=== PATIENT | female | born 1980 | race Caucasian/White ===

== ENCOUNTER 2018-11-27 14:03 | Emergency (ER) | payer SELFPAY ==
[2018-11-27] MEDS ORDERED: KETOROLAC 30 MG/ML INJ ONE (14:30)
--- NOTE | 2018-11-27 15:09 | ER ---
Nurse's Notes [facility] Name: Madai Potts Age: 38 yrs Sex: Female : 1980 Arrival Date: 11/27/2018 Time: 14:08 Bed 10 Private MD: Diagnosis: Other sprain of right foot Presentation: 11/27 14:09 Presenting complaint: Patient states: I hurt my right ankle on week ago and it has been la1 hurting since then. Transition of care: patient was not received from another setting of care. Onset of symptoms was November 27, 2018. Risk Assessment: Do you want to hurt yourself or someone else? Patient reports no desire to harm self or others. Initial Sepsis Screen: Does the patient meet any 2 criteria? No. Patient's initial sepsis screen is negative. Does the patient have a suspected source of infection? No. Patient's initial sepsis screen is negative. Care prior to arrival: None. 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 - Social history:: Smoking status: Patient/guardian denies using tobacco. - Ebola Screening: : No symptoms or risks identified at this time. Screenin:11 Abuse screen: Denies threats or abuse. Nutritional screening: No deficits noted. la1 Tuberculosis screening: No symptoms or risk factors identified. Fall Risk None identified. Assessment: 14:10 General: Appears in no apparent distress. Behavior is calm, cooperative. Pain: la1 Complains of pain in right lateral malleolus. Neuro: Level of Consciousness is awake, alert, obeys commands, Oriented to person, place, time, situation. Cardiovascular: Capillary refill < 3 seconds Patient's skin is warm and dry. Respiratory: Airway is patent Respiratory effort is even, unlabored, Respiratory pattern is regular, symmetrical. GI: No signs and/or symptoms were reported involving the gastrointestinal system. : No signs and/or symptoms were reported regarding the genitourinary system. Musculoskeletal: Circulation, motion, and sensation intact. Capillary refill < 3 seconds, is brisk, in bilateral toes. 14:36 Reassessment: Patient is alert, oriented x 3, equal unlabored respirations, skin aa5 warm/dry/pink. No swelling noted to right ankle, pt c/o pain to right ankle . 14:37 Reassessment: X-ray at bedside, pt notified of wait time for results . aa5 15:20 Reassessment: Walking boot applied to right foot . aa5 15:20 Reassessment: Patient is alert, oriented x 3, equal unlabored respirations, skin aa5 warm/dry/pink. Vital Signs: 14:11 BP 144 / 89; Pulse 91; Resp 16; Temp 98.4; Pulse Ox 100% on R/A; Weight 79.38 kg; la1 Height 5 ft. 3 in. (160.02 cm); 14:11 Body Mass Index 31.00 (79.38 kg, 160.02 cm) la1 ED Course: 14:08 Patient arrived in ED. mr 14:10 Triage completed. la1 14:10 Arm band placed on right wrist. la1 14:11 Patient has correct armband on for positive identification. la1 14:12 Soo Bueno FNP-C is PHCP. snw 14:12 Robert Willingham MD is Attending Physician. snw 14:36 Lianet Booth, MILTON is Primary Nurse. aa5 15:06 Ankle Right 3 View XRAY In Process Unspecified. EDMS 15:15 No provider procedures requiring assistance completed. Patient did not have IV access aa5 during this emergency room visit. Administered Medications: 14:36 Drug: TORadol 30 mg Route: IM; Site: right deltoid; aa5 15:15 Follow up: Response: No adverse reaction aa5 Outcome: 15:08 Discharge ordered by . snw 15:20 Discharged to home ambulatory, with family. aa5 15:20 Condition: stable 15:20 Discharge instructions given to patient, Instructed on discharge instructions, follow up and referral plans. medication usage, Demonstrated understanding of instructions, follow-up care, medications, Prescriptions given X 2. 15:26 Patient left the ED. aa5 Signatures: Dispatcher [employer] EDIN Soo Bueno FNP-C PATTERN VAULT CLERK-Csn Jodi Elizabeth mr Lianet Booth, MILTON RN aa5 Onel Segundo RN RN la1 Corrections: (The following items were deleted from the chart) 11/28 07:34 11/27 14:36 Reassessment: Patient is alert, oriented x 3, equal unlabored respirations, aa5 skin warm/dry/pink. aa5
--- NOTE | 2018-11-27 15:10 | EDPHYS ---
Physician Documentation [facility] Name: Madai Potts Age: 38 yrs Sex: Female : 1980 Arrival Date: 11/27/2018 Time: 14:08 Bed 10 Private MD: YASMANY Physician Robert Willingham HPI: 11/27 14:25 This 38 yrs old Female presents to ER via Ambulatory with complaints of Ankle snw Injury. 14:25 The patient presents with an injury, pain, swelling. The complaints affect the right snw ankle. Onset: The symptoms/episode began/occurred gradually, 1 week(s) ago. Context: The problem was sustained outdoors, mud run, resulted from a mis-step by the patient, The mechanism of injury is unknown. The patient can partially bear weight on the affected extremity. the patient is able to ambulate. Modifying factors: The symptoms are alleviated by nothing, the symptoms are aggravated by weight bearing, movement. Severity of symptoms: At their worst the symptoms were moderate. It is unknown whether or not the patient has had similar symptoms in the past. The patient has not recently seen a physician. 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 - Social history:: Smoking status: Patient/guardian denies using tobacco. - Ebola Screening: : No symptoms or risks identified at this time. ROS: 14:25 Constitutional: Negative for fever, chills, and weight loss, Eyes: Negative for injury, snw pain, redness, and discharge, ENT: Negative for injury, pain, and discharge, Neck: Negative for injury, pain, and swelling, Cardiovascular: Negative for chest pain, palpitations, and edema, Respiratory: Negative for shortness of breath, cough, wheezing, and pleuritic chest pain, Abdomen/GI: Negative for abdominal pain, nausea, vomiting, diarrhea, and constipation, Back: Negative for injury and pain, : Negative for injury, bleeding, discharge, and swelling, Skin: Negative for injury, rash, and discoloration, Neuro: Negative for headache, weakness, numbness, tingling, and seizure, Psych: Negative for depression, anxiety, suicide ideation, homicidal ideation, and hallucinations. 14:25 MS/extremity: Positive for injury or acute deformity, pain, swelling, of the lateral side of right heel and right Achilles. Exam: 14:25 Constitutional: This is a well developed, well nourished patient who is awake, alert, snw and in no acute distress. Head/Face: Normocephalic, atraumatic. Eyes: Pupils equal round and reactive to light, extra-ocular motions intact. Lids and lashes normal. Conjunctiva and sclera are non-icteric and not injected. Cornea within normal limits. Periorbital areas with no swelling, redness, or edema. ENT: Nares patent. No nasal discharge, no septal abnormalities noted. Tympanic membranes are normal and external auditory canals are clear. Oropharynx with no redness, swelling, or masses, exudates, or evidence of obstruction, uvula midline. Mucous membranes moist. Neck: Trachea midline, no thyromegaly or masses palpated, and no cervical lymphadenopathy. Supple, full range of motion without nuchal rigidity, or vertebral point tenderness. No Meningismus. Chest/axilla: Normal chest wall appearance and motion. Nontender with no deformity. No lesions are appreciated. Cardiovascular: Regular rate and rhythm with a normal S1 and S2. No gallops, murmurs, or rubs. Normal PMI, no JVD. No pulse deficits. Respiratory: Lungs have equal breath sounds bilaterally, clear to auscultation and percussion. No rales, rhonchi or wheezes noted. No increased work of breathing, no retractions or nasal flaring. Abdomen/GI: Soft, non-tender, with normal bowel sounds. No distension or tympany. No guarding or rebound. No evidence of tenderness throughout. Back: No spinal tenderness. No costovertebral tenderness. Full range of motion. Skin: Warm, dry with normal turgor. Normal color with no rashes, no lesions, and no evidence of cellulitis. Neuro: Awake and alert, GCS 15, oriented to person, place, time, and situation. Cranial nerves II-XII grossly intact. Motor strength 5/5 in all extremities. Sensory grossly intact. Cerebellar exam normal. Normal gait. Psych: Awake, alert, with orientation to person, place and time. Behavior, mood, and affect are within normal limits. 14:25 Musculoskeletal/extremity: Extremities: grossly normal except: decreased ROM, swelling, tenderness, ROM: no acute changes, Circulation is intact in all extremities. Sensation intact. 14:25 Skin: Appearance: normal except for affected area, right foot with abrasions from her dog. Vital Signs: 14:11 BP 144 / 89; Pulse 91; Resp 16; Temp 98.4; Pulse Ox 100% on R/A; Weight 79.38 kg; la1 Height 5 ft. 3 in. (160.02 cm); 14:11 Body Mass Index 31.00 (79.38 kg, 160.02 cm) la1 MDM: 14:14 Patient medically screened. snw 15:10 Data reviewed: vital signs, nurses notes. Data interpreted: Pulse oximetry: on room air snw is 100 %. Interpretation: normal. Counseling: I had a detailed discussion with the patient and/or guardian regarding: the historical points, exam findings, and any diagnostic results supporting the discharge/admit diagnosis, lab results, the need for outpatient follow up, to return to the emergency department if symptoms worsen or persist or if there are any questions or concerns that arise at home. Special discussion: I discussed in detail with the patient the higher chance of wound infection based on his presenting history. Based on the history and exam findings, there is no indication for further emergent testing or inpatient evaluation. I discussed with the patient/guardian the need to see the electrician master for further evaluation of the symptoms. 15:11 Special discussion: Based on the history and exam findings, there is no indication for snw further emergent testing or inpatient evaluation. I discussed with the patient/guardian the need to see the orthopedic surgeon for further evaluation of the symptoms. I discussed with the patient/guardian the need to see the primary care provider for further evaluation of the symptoms. 11/27 14:25 Order name: Ankle Right 3 View XRAY; Complete Time: 16:07 snw 11/27 14:25 Order name: Walking boot; Complete Time: 15:25 snw Administered Medications: 14:36 Drug: TORadol 30 mg Route: IM; Site: right deltoid; aa5 15:15 Follow up: Response: No adverse reaction aa5 Disposition: 11/27/18 15:08 Discharged to Home. Impression: Other sprain of right foot. - Condition is Stable. - Discharge Instructions: Ankle Sprain, Foot Sprain, RICE for Routine Care of Injuries, Walking Boot. - Prescriptions for Tylenol- Codeine #3 300-30 mg Oral Tablet - take 2 tablets by ORAL route every 6 hours As needed; 14 tablet. orphenadrine citrate 100 mg Oral Tablet Sustained Release - take 1 tablet by ORAL route 2 times per day As needed; 20 tablet. - Medication Reconciliation Form, Thank You Letter, Antibiotic Education, Prescription Opioid Use form. - Follow up: Private Physician; When: 2 - 3 days; Reason: Recheck today's complaints, Continuance of care, Re-evaluation by your physician. Follow up: Emergency Department; When: As needed; Reason: Worsening of condition. Addendum: 11/29/2018 09:12 Co-signature as Attending Physician, Robert Willingham MD I agree with the assessment and c moore plan of care. Signatures: Dispatcher [employer] EDRobert Keller MD MD cha Therrien, Shelly, GRANITE POLISHER MACHINE-C GRANITE POLISHER MACHINE-Csnw iLanet Booth RN RN aa5 Onel Segundo RN RN la1 Corrections: (The following items were deleted from the chart) 11/27 15:26 15:08 11/27/2018 15:08 Discharged to Home. Impression: Other sprain of right foot. aa5 Condition is Stable. Forms are Medication Reconciliation Form, Thank You Letter, Antibiotic Education, Prescription Opioid Use. Follow up: Private Physician; When: 2 - 3 days; Reason: Recheck today's complaints, Continuance of care, Re-evaluation by your physician. Follow up: Emergency Department; When: As needed; Reason: Worsening of condition. snw
--- NOTE | 2018-11-27 15:20 | RAD REPORT ---
EXAM DESCRIPTION: RAD - Ankle Right 3 View - 11/27/2018 3:03 pm CLINICAL HISTORY: Right ankle pain FINDINGS: No fracture or dislocation is seen. Moderate spur extends off the posterior aspect of the calcaneus
== END 2018-11-27 15:26 | disposition home or self-care (01) ==
LOC: ER 14:03
DX: S93.601A Unspecified sprain of right foot, initial encounter (principal); Y93.02 Activity, running; Y92.9 Unspecified place or not applicable
CPT/HCPCS: 96372; 99283

== ENCOUNTER 2020-10-08 21:34 | Emergency (ER) | payer SELFPAY ==
--- OUTSIDE RECORDS SUMMARY | 2020-10-08 21:37 | XMS REPORT | Continuity of Care Document ---
:[address] [facility] t Address [address] [place] [address] Care Team Providers Name Role Phone Dillon Attending Clinician [phone] Jose L Cohn Attending Clinician Problems Condition Condition Condition Status Onset Resolution Last Treating Co mments Source Name Details Category Date Date Treatment Clinician Date ABD PAIN Diagnosis Active 2013-07-31 M emoria -04 18:34:00 l ABD PAIN 12:00: Barrie n 00 Active 07/31/2013 [facility] History of Past Illness Condition Condition Condition Status Onset Resolution Last Treating Co mments Source Name Details Category Date Date Treatment Clinician Date Discharge Problem 2013-08-02 2013-08-02 Memoria Diagnosis: - 20:48:06 20:48:06 l Acute 05:00: Saqib epigastric Discharge 00 pain Diagnosis: Acute epigastric pain 07/31/2013 08/02/2013 [facility] Allergies, Adverse Reactions, Alerts This patient has no known allergies or adverse reactions. Medications Ordered Filled Start Stop Current Ordering Indication Dosage Frequency Signature Comments Components Source Medication Medication Date Date Medication? Clinician (SIG) Name Name Ondansetron Yes Special Mem oria 4 MG 5-05 Instructio l Disintegrat 00:07: ns: Barrie n ing Tablet 00 Dissolve [Zofran] tab under tongue Ranitidine Yes 150 mg = 1 M emoria 150 MG Oral 5-05 tab, PO, l Tablet 00:07: BID, # 60 Barrie n [Zantac] 00 tab, 0 Refill(s) Acetaminoph Yes 1 tab, PO, Memoria en 325 MG / 5-05 Q4H, for l Hydrocodone 00:07: pain, # 24 Saqib Bitartrate 00 tab, 0 5 MG Oral Refill(s) Tablet [Ririe 5/325] pantoprazol Yes 40 mg = 1 M emoria e 40 MG 5-05 tab, PO, l Enteric 00:07: Daily, # Barrie n Coated 00 90 tab, 0 Tablet Refill(s) [Protonix] GI cocktail No 30 mL, Osito vivek 5-04 Route: PO, l 23:27: Dosing 00 Weight 65.909, kg, ONCE, STAT, Start date: 07/31/13 18:27:00, Stop date: 07/31/13 18:27:00 Ondansetron No Notes: Osito vivek 5-04 (Same as: l 22:13: Zofran) [place] 00 Morphine No Notes: Memoria 5-04 (Same l 22:13: as:MORPhin Saqib e Sulfate) Saline No Notes: Memoria Flush 0.9% 04 (Same as: l 22:13: BD [place] Posiflush) Vital Signs Vital Name Observation Time Observation Value Comments Source Temperature Oral (F) 2013-08-01 00:10:00 98.3 F [facility] 2013-08-01 00:10:00 Memori al [place] Diastolic (mm Hg) 2013-08-01 00:10:00 Mem adisal Saq[facility] Systolic (mm Hg) 2013-08-01 00:10:[facility] 2013-07-31 21:55:00 [facility] BMI Calculated 2013-07-31 21:55:00 Mem[facility] al [facility] Height 2013-07-31 21:55:00 165.1 cm [facility] Diastolic (mm Hg) 2013-07-31 21:55:00 Mem orial [place] Heart Rate 2013-07-31 21:55:00 [facility] Temperature Oral (F) 2013-07-31 21:55:00 98.3 F [facility] Systolic ([facility] Hg) 2013-07-31 21:55:00 Osito rial [place] Respitory Rate 2013-07-31 21:55:00 Kristi al Saqib Procedures This patient has no known procedures. Encounters Start End Encounter Admission Attending Care Care Encounter Source Date/Time Date/Time Type Type Clinicians Facility Department ID 2020-09-26 2020-09-26 Outpatient JONE Dillon [facility] [id number] a-d 00:00:00 00:00:00 Soo [id number] 2013-07-31 2013-07-31 Outpatient Skip Cohn [facility] [id number] 16:53:00 19:20:00 Jose L 00 Results Test Description Test Time Test Comments Results Result Comments Source URINE AND STOOL 2013-07-31 None Seen [facility] 23:25:00 (07/31/13 6:25 [place] PM) URINE AND STOOL 2013-07-31 Clear (07/31/13 Memori al 23:25:00 6:25 PM) Saqib URINE AND STOOL 2013-07-31 [facility] 23:25:00 *NA*(07/31/13 Saqib 6:25 PM) URINE AND STOOL 2013-07-31 23:25:00 Test Item Value Reference Range Interpretation Comme nts UA pH (test code = UA pH) 6.5 1 5.0-8.0 [facility] [id number] 23:25:00Negative (07/31/13 6:25 PM) [facility] [id number] 23:25:00 Test Item Value Reference Range Interpretation Comments UA Spec Grav (test code = UA Spec 1.015 1 Grav) [facility] [id number] 23:25:00Negative (07/31/13 6:25 PM) [facility] [id number] 23:25:00Trace *ABN*(07/31/13 6:25 PM) [facility] [id number] 23:25:00Small *ABN*(07/31/13 6:25 PM) [facility] [id number] 23:25:00Negative *NA*(07/31/13 6:25 PM) [facility] [id number] 23:25:00Negative (07/31/13 6:25 PM) [facility] [id number] 23:25:000.2[facility] [id number] 23:25:00Negative (07/31/13 6:25 PM)[facility] CHEM 2013-07-31 23:25:00Negative (07/31/13 6:25 PM)[facility]ann[facility]ARDIAC ENZYMES 2013-07-31 22:20:33<0.02[facility] [id number] 22:20:68879 [facility] [id number] 22:20:330.7[facility]annCARDIAC [id number] 22:20:330.4[facility] HermannCHEM [id number] 22:20:28689 [facility]annCHEM [id number] 22:20:3380[facility]annCHEM PANEL 2013-07-31 22:20:333.2[facility] HermannCHEM [id number] 22:20:331.3[facility]annCHEM [id number] 22:20:337.4[facility]annCHEM [id number] 22:20:330.7[facility] HermannCHEM [id number] 22:20:3312.9[facility] HermannCHEM [id number] 22:20:3314[facility] HermannCHEM [id number] 22:20:26821 [facility]ann[facility] [id number] 22:20:3312[facility] HermannCHEM PANEL 2013-07-31 22:20:90644Uqbfcmmv HermannCHEM [id number] 22:20:333.9[facility] HermannCHEM [id number] 22:20:3326[facility] HermannCHEM [id number] 22:20:339.5[facility] HermannCHEM [id number] 22:20:3352[facility] HermannCHEM [id number] 22:20:334.2[facility] HermannCHEM [id number] 22:20:3385 [facility]annCHE[facility] [id number] 22:20:3312[facility] HermannCHEM PANEL 2013-07-31 22:20:331.0[facility] HermannCHEM [id number] 22:20:3321[facility] RyngkqiKMRBGHRDYY3312-72-59 22:20:3385.0[facility] SmizaxpXWGDFRICRG8408-80-40 22:20:338.4[facility] FphrxoxOBWDYLHSNQ5273-23-19 22:20:3313.2[facility] [id number] 22:20:3335.4[facility] DfmtdymNYWLBYEYOC1182-12-40 22:20:33 Test Item Value Reference Range Interpretation Comments MCH (test code = MCH) 30.1 pg 27.0-31.0 [facility] [id number] 22:20:16593Cpfqsckr HermannHEMATOLOGY 2013-07-31 22:20:337.4[facility] XthmnqsUGPSXMMDVS3211-43-81 22:20:3314.4[facility] UuratwgATGJXFBWSI0026-50-57 22:20:334.77[facility] RcvykxcEAVRQXLNVS2469-90-87 22:20:3340.5[facility] FclpwbbCSJQXGVZDD8407-48-46 22:20:33 Test Item Value Reference Range Interpretation Comments PTT (test code = PTT) 30.5 s 22.9-35.8 [facility] JpbcasgZDRLLAWYGE7575-49-10 22:20:33 Test Item Value Reference Range Interpretation Comments PT (test code = PT) 13.0 s 12.0-14.7 [facility] RovwpqdHEIVOXVSQA5354-20-04 22:20:330.99[facility] HermannHEMATOLOGY 2013-07-31 22:20:330.6[facility] NbmdjzhUXDQLVQHCX6555-99-47 22:20:330.1[facility] QbpelzsAEZAEKTNIB5335-61-93 22:20:338.4[facility] UtiyaipNBAOLKGLJO0756-21-88 22:20:3334.4[facility] YxvsadbONLGOATLCS0767-11-26 22:20:330.8[facility] [place] EZCLGWOJGO2646-20-69 22:20:3356.0[facility] GmnkqxbJNWIXACMLU8440-74-25 22:20:33 2.6[facility] LqmmlmsSAWEDAGDOS7317-10-75 22:20:330.4[facility] HermannHEMATOLOGY 2013-07-31 22:20:334.2[facility] [place]
[2020-10-08 23:51] LABS: Absolute Lymphocytes (CBC) 2.9 K/uL (0.7-4.9); Basophils % 0.7 % (0-1.3); Lymphocytes % 37.1 % (15.3-44.8); MPV 8.3 fL (7.6-11.3); Protime INR 0.9; RBC Red Blood Cell Count 4.43 M/uL (3.86-4.86)
[2020-10-09] MEDS ORDERED: NA CHLORIDE 0.9% 1,000 ML ONE (00:02)
[2020-10-09 00:11] LABS: ALT/SGPT 17 U/L (12-78); AST/SGOT 14 U/L (15-37); Albumin 3.6 g/dL (3.4-5.0); Alkaline Phosphatase 48 U/L (45-117); Anisocytosis 1+; BUN Blood Urea Nitrogen 22 mg/dL (7-18); Bicarbonate 28 mmol/L (21-32); Bilirubin Direct < 0.1 mg/dL (0-0.2); Bilirubin Total 0.2 mg/dL (0.2-1.0); Blood Morphology Comment NOTED (NOT SEEN); Glucose Level 107 mg/dL (74-106); Hypochromasia 1+; NT PRO-BNP 16 pg/mL (<125); Platelet Estimate ADEQ; Potassium 3.5 mmol/L (3.5-5.1); Protein, Total 6.8 g/dL (6.4-8.2); Sodium Level 141 mmol/L (136-145); Troponin (Emerg Dept Use Only) < 0.02 ng/mL (0.0-0.045); White Blood Cell Scan OK (OK)
--- NOTE | 2020-10-09 00:22 | EDPHYS ---
Physician Documentation [facility] Name: Madai Potts Age: 40 yrs Sex: Female : 1980 Arrival Date: 10/08/2020 Time: 21:40 Bed 4 Private MD: ED Physician Robert Willingham HPI: 10/09 00:15 This 40 yrs old Female presents to ER via Ambulatory with complaints of juan Dizziness, Headache, LETHARGIC. 00:15 The patient presents with dizziness, feeling faint, generalized weakness. Onset: The juan symptoms/episode began/occurred 7 day(s) ago. Context: occurred at an unknown location. Modifying factors: The symptoms are alleviated by nothing, the symptoms are aggravated by nothing. Associated signs and symptoms: The patient has no apparent associated signs or symptoms. Severity of symptoms: At their worst the symptoms were mild in the emergency department the symptoms are unchanged. Patient's baseline: Neuro: alert and fully oriented. The patient has experienced similar episodes in the past, multiple times. 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 - Social history:: Smoking status: Patient denies any tobacco usage or history of. - Family history:: not pertinent. ROS: 10/09 00:15 Constitutional: Negative for fever, chills, and weight loss, Eyes: Negative for injury, juan pain, redness, and discharge, ENT: Negative for injury, pain, and discharge, Neck: Negative for injury, pain, and swelling, Cardiovascular: Negative for chest pain, palpitations, and edema, Respiratory: Negative for shortness of breath, cough, wheezing, and pleuritic chest pain, Abdomen/GI: Negative for abdominal pain, nausea, vomiting, diarrhea, and constipation, Back: Negative for injury and pain, : Negative for injury, bleeding, discharge, and swelling, MS/Extremity: Negative for injury and deformity, Skin: Negative for injury, rash, and discoloration, Psych: Negative for depression, anxiety, suicide ideation, homicidal ideation, and hallucinations, Allergy/Immunology: Negative for hives, rash, and allergies, Endocrine: Negative for neck swelling, polydipsia, polyuria, polyphagia, and marked weight changes, Hematologic/Lymphatic: Negative for swollen nodes, abnormal bleeding, and unusual bruising. : Positive for vaginal bleeding, 3 days ago. Neuro: Positive for weakness. Exam: 00:15 Constitutional: This is a well developed, well nourished patient who is awake, alert, juan and in no acute distress. Head/Face: Normocephalic, atraumatic. Eyes: Pupils equal round and reactive to light, extra-ocular motions intact. Lids and lashes normal. Conjunctiva and sclera are non-icteric and not injected. Cornea within normal limits. Periorbital areas with no swelling, redness, or edema. ENT: Nares patent. No nasal discharge, no septal abnormalities noted. Tympanic membranes are normal and external auditory canals are clear. Oropharynx with no redness, swelling, or masses, exudates, or evidence of obstruction, uvula midline. Mucous membranes moist. Neck: Trachea midline, no thyromegaly or masses palpated, and no cervical lymphadenopathy. Supple, full range of motion without nuchal rigidity, or vertebral point tenderness. No Meningismus. Chest/axilla: Normal chest wall appearance and motion. Nontender with no deformity. No lesions are appreciated. Cardiovascular: Regular rate and rhythm with a normal S1 and S2. No gallops, murmurs, or rubs. Normal PMI, no JVD. No pulse deficits. Respiratory: Lungs have equal breath sounds bilaterally, clear to auscultation and percussion. No rales, rhonchi or wheezes noted. No increased work of breathing, no retractions or nasal flaring. Abdomen/GI: Soft, non-tender, with normal bowel sounds. No distension or tympany. No guarding or rebound. No evidence of tenderness throughout. Back: No spinal tenderness. No costovertebral tenderness. Full range of motion. Skin: Warm, dry with normal turgor. Normal color with no rashes, no lesions, and no evidence of cellulitis. MS/ Extremity: Pulses equal, no cyanosis. Neurovascular intact. Full, normal range of motion. Neuro: Awake and alert, GCS 15, oriented to person, place, time, and situation. Cranial nerves II-XII grossly intact. Motor strength 5/5 in all extremities. Sensory grossly intact. Cerebellar exam normal. Normal gait. Psych: Awake, alert, with orientation to person, place and time. Behavior, mood, and affect are within normal limits. 00:23 ECG was reviewed by the Attending Physician. [facility] Vital Signs: 10/08 21:57 BP 116 / 71; Pulse 74; Resp 15 S; Temp 97.6(TE); Pulse Ox 100% on R/A; Weight 72.57 kg ca1 (R); Height 5 ft. 3 in. (160.02 cm) (R); Pain 0/10; 23:44 BP 118 / 63; Pulse 72; Resp 18; Pulse Ox 99% ; ea 10/09 00:59 BP 105 / 62 LA Supine (auto/); Pulse 64 MON; Pulse Ox 100% on R/A; ds4 01:02 BP 117 / 74 LA Sitting (auto/); Pulse 72 MON; Pulse Ox 99% on R/A; ds4 01:05 BP 118 / 79 LA Standing (auto/); Pulse 74 MON; Pulse Ox 100% on R/A; ds4 10/08 21:57 Body Mass Index 28.34 (72.57 kg, 160.02 cm) ca1 MDM: 10/08 23:31 Patient medically screened. [facility] 10/09 00:19 Differential diagnosis: cardiac arrhythmia, generalized weakness, hypovolemia, juan near-syncope, . Data reviewed: vital signs, nurses notes, lab test result(s), EKG, radiologic studies. Data interpreted: playground monitor: rate is 72 beats/min, rhythm is regular. Test interpretation: by ED physician or midlevel provider: ECG, plain radiologic studies. Counseling: I had a detailed discussion with the patient and/or guardian regarding: the historical points, exam findings, and any diagnostic results supporting the discharge/admit diagnosis, lab results, radiology results, the need for outpatient follow up, for definitive care, an OB/Gyne specialist. 10/08 23:25 Order name: Basic Metabolic Panel; Complete Time: 00: ea 10/08 23:25 Order name: CBC with Diff; Complete Time: : 10/08 23:25 Order name: LFT's; Complete Time: 10/08 23:25 Order name: Magnesium; Complete Time: 00: 10/08 23:25 Order name: NT PRO-BNP; Complete Time: 00:14 10/08 23:25 Order name: PT-INR; Complete Time: 00:14 10/08 23:25 Order name: Troponin (emerg Dept Use Only); Complete Time: 00:14 10/08 23:25 Order name: XRAY Chest (1 view) 10/08 23:33 Order name: Urine Culture [facility] 10/09 00:00 Order name: CBC Smear Scan; Complete Time: 00:14 [facility] 10/09 00:39 Order name: Urine Dipstick-Ancillary [facility] 10/09 00:41 Order name: Urine --Ancillary (enter results) ds4 10/08 23:25 Order name: EKG; Complete Time: 23:26 10/08 23:25 Order name: Cardiac monitoring; Complete Time: 23:37 10/08 23:25 Order name: EKG - Nurse/Tech; Complete Time: 23:37 10/08 23:25 Order name: IV Saline Lock; Complete Time: 23:37 10/08 23:25 Order name: Labs collected and sent; Complete Time: 23:37 10/08 23:25 Order name: O2 Per Protocol; Complete Time: 23:37 10/08 23:25 Order name: O2 Sat Monitoring; Complete Time: 23:37 10/08 23:33 Order name: Urine Dipstick-Ancillary (obtain specimen); Complete Time: 00:41 [facility] 10/08 23:33 Order name: Urine Test (obtain specimen); Complete Time: 00:41 [facility] 10/09 00:24 Order name: Orthostatic Blood Pressure; Complete Time: 01:07 [facility] EC:23 Rate is 75 beats/min. Rhythm is regular. QRS Kennan is Normal. CT interval is normal. QRS juan interval is normal. QT interval is normal. No Q waves. T waves are Normal. No ST changes noted. Clinical impression: Normal ECG and No evidence of ischemia. Interpreted by me. Reviewed by me. Administered Medications: 10/08 23:43 Drug: NS 0.9% 1000 ml Route: IV; Rate: 1 bolus; Site: right antecubital; ea 10/09 01:20 Follow up: Response: No adverse reaction; IV Status: Completed infusion; IV Intake: ea 1000ml Disposition Summary: 10/09/20 00:21 Discharge Ordered Location: Home juan Problem: new juan Symptoms: have improved juan Condition: Stable juan Diagnosis - Leiomyoma of uterus, unspecified juan - Abnormal uterine and vaginal bleeding, unspecified juan - Weakness juan - Anemia, unspecified juan Followup: juan - With: Private Physician - When: 2 - 3 days - Reason: Recheck today's complaints, Continuance of care, Re-evaluation by your physician Followup: juan - With: Tereso Mart MD - When: 2 - 3 days - Reason: Recheck today's complaints, Re-evaluation by your physician Discharge Instructions: - Discharge Summary Sheet juan - Abnormal Uterine Bleeding juan - Uterine Fibroids juan - Dysfunctional Uterine Bleeding juan - Weakness juan - Weakness, [id number] juan - Abnormal Uterine Bleeding, [id number] juna Forms: - Medication Reconciliation Form juan - Thank You Letter juan - Antibiotic Education juan - Prescription Opioid Use [facility] Prescriptions: - Ferrous Sulfate 325 mg (65 mg Iron) Oral Tablet - take 1 tablet by ORAL route every 8 hours; 90 tablet; Refills: 0, Product [facility] Selection Permitted - Ibuprofen 600 mg Oral Tablet - take 1 tablet by ORAL route every 6 hours As needed take with food; 20 tablet; juan Refills: 0, Product Selection Permitted Signatures: Dispatcher [employer] Robert Lombardo MD MD cha Antunez, Elena, RN RN Suzi Nieves RN RN ria
--- NOTE | 2020-10-09 00:22 | ER ---
Nurse's Notes [facility] Name: Madai Potts Age: 40 yrs Sex: Female : 1980 Arrival Date: 10/08/2020 Time: 21:40 Bed 4 Private MD: Diagnosis: Leiomyoma of uterus, unspecified;Abnormal uterine and vaginal bleeding, unspecified;Weakness;Anemia, unspecified Presentation: 10/08 21:57 Chief complaint: Patient states: Dizziness, fatigue, weak for a while now. My doctor ca1 sent me here for low Iron levels. I have heavy bleeding during my periods. Coronavirus screen: Client denies travel out of the [place] in the last 14 days. At this time, the client does not indicate any symptoms associated with coronavirus-19. Ebola Screen: Patient negative for fever greater than or equal to 101.5 degrees Fahrenheit, and additional compatible Ebola Virus Disease symptoms Patient denies exposure to infectious person. Patient denies travel to an Ebola-affected area in the 21 days before illness onset. No symptoms or risks identified at this time. Initial Sepsis Screen: Does the patient meet any 2 criteria? No. Patient's initial sepsis screen is negative. Does the patient have a suspected source of infection? No. Patient's initial sepsis screen is negative. Risk Assessment: Do you want to hurt yourself or someone else? Patient reports no desire to harm self or others. Onset of symptoms was October 08, 2020. 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 - Social history:: Smoking status: Patient denies any tobacco usage or history of. - Family history:: not pertinent. Screenin:44 Abuse screen: Denies threats or abuse. Nutritional screening: No deficits noted. ea Tuberculosis screening: No symptoms or risk factors identified. Fall Risk None identified. Assessment: 23:44 General: Appears uncomfortable, Behavior is calm, cooperative, appropriate for age. ea Neuro: Level of Consciousness is awake, alert, obeys commands, Oriented to person, place, time. Cardiovascular: Patient's skin is warm and dry. Respiratory: Airway is patent Respiratory effort is even, unlabored, Respiratory pattern is regular, symmetrical. Derm: Skin is pink, warm \T\ dry. 10/09 01:19 Reassessment: Patient and/or family updated on plan of care and expected duration. Pain ea level reassessed. Patient is alert, oriented x 3, equal unlabored respirations, skin warm/dry/pink. Vital Signs: 10/08 21:57 BP 116 / 71; Pulse 74; Resp 15 S; Temp 97.6(TE); Pulse Ox 100% on R/A; Weight 72.57 kg ca1 (R); Height 5 ft. 3 in. (160.02 cm) (R); Pain 0/10; 23:44 BP 118 / 63; Pulse 72; Resp 18; Pulse Ox 99% ; ea 10/09 00:59 BP 105 / 62 LA Supine (auto/); Pulse 64 MON; Pulse Ox 100% on R/A; ds4 01:02 BP 117 / 74 LA Sitting (auto/); Pulse 72 MON; Pulse Ox 99% on R/A; ds4 01:05 BP 118 / 79 LA Standing (auto/); Pulse 74 MON; Pulse Ox 100% on R/A; ds4 10/08 21:57 Body Mass Index 28.34 (72.57 kg, 160.02 cm) ca1 ED Course: 10/08 21:40 Patient arrived in ED. cf2 21:59 Triage completed. ca1 21:59 Arm band placed on right wrist. ca1 23:23 Kami Campbell, RN is Primary Nurse. ea 23:31 Robert Willingham MD is Attending Physician. juan 23:43 Inserted saline lock: 20 gauge in right antecubital area, using aseptic technique. ea 23:44 Patient has correct armband on for positive identification. Bed in low position. Call ea light in reach. Side rails up X2. 23:47 XRAY Chest (1 view) In Process Unspecified. EDMS 10/09 00:22 Tereso Mart MD is Referral Physician. juan 00:41 Urine Culture Sent. ds4 01:19 No provider procedures requiring assistance completed. IV discontinued, intact, ea bleeding controlled, No redness/swelling at site. Pressure dressing applied. Administered Medications: 10/08 23:43 Drug: NS 0.9% 1000 ml Route: IV; Rate: 1 bolus; Site: right antecubital; raheel 10/09 01:20 Follow up: Response: No adverse reaction; IV Status: Completed infusion; IV Intake: ea 1000ml Intake: 01:20 IV: 1000ml; Total: 1000ml. raheel Outcome: 00:21 Discharge ordered by . juan 01:19 Discharged to home ambulatory, with family. raheel 01:19 Condition: stable 01:19 Discharge instructions given to patient, Instructed on discharge instructions, follow up and referral plans. Demonstrated understanding of instructions, follow-up care. 01:27 Patient left the ED. ea Signatures: Dispatcher [employer] EDRobert Keller MD MD cha Swanson, Donovan ds4 Kami Campbell RN Suzi Stewart ea RN Douglas Kellogg cf2
[2020-10-09 00:39] LABS: Urine Blood Negative (Negative); Urine Glucose Negative (Negative); Urine Protein Negative (Negative); Urine Specific Gravity >=1.030 (1.005-1.030)
[2020-10-09 00:44] LABS: Urine Specific Gravity/Preg >1.030 (1.005-1.030)
[2020-10-09 01:35] VITALS: TEMP 97.6
[2020-10-09 01:40] VITALS: BP 118/79; O2SAT 100
--- NOTE | 2020-10-09 07:48 | RAD REPORT ---
EXAM DESCRIPTION: Gab Single View10/08/2020 11:47 pm CLINICAL HISTORY: Dizziness COMPARISON: none FINDINGS: The lungs appear clear of acute infiltrate. The heart is normal size IMPRESSION: No acute abnormalities displayed
--- NOTE | 2020-10-09 19:15 | EKG ---
Test Date: 2020-10-08 Test Time: 23:33:57 Dip Stand Loader: DILEEP MEASUREMENT RESULTS: Intervals: Rate: 75 WV: 162 QRSD: 92 QT: 424 QTc: 473 [place]: P: 57 WV: 162 QRS: 66 T: 41 INTERPRETIVE STATEMENTS: Normal sinus rhythm Normal ECG No previous ECG available for comparison Electronically Signed On 10-09-20 19:13:38 CDT by Lm Huff
== END 2020-10-09 01:27 | disposition home or self-care (01) ==
LOC: ER 21:34
DX: D25.9 Leiomyoma of uterus, unspecified (principal); N93.9 Abnormal uterine and vaginal bleeding, unspecified; D64.9 Anemia, unspecified
CPT/HCPCS: 36415; 71045; 80048; 80076; 81003; 81025; 83735; 83880; 84484; 85025; 85610; 87086; 87088; 93005; 96360; 96361; 99284